=== PATIENT | female | born 1955 | race Caucasian/White ===

== ENCOUNTER 2018-10-12 13:01 | Emergency (ER) | payer MEDICARE, OTHER ==
[~2018-10-12] VITALS: Wt 78.0 kg
[2018-10-12 13:08] VITALS: BP 141/74; PULSE 97; RESP 18
[2018-10-12] MEDS ORDERED: IBUPROFEN 800 MG TAB PO ONE (14:00)
[2018-10-12] MEDS ORDERED: IBUP-1542 PO (15:12)
--- NOTE | 2018-10-12 15:14 | ERD ---
ER Documentation Chief Complaint Chief Complaint BACK /NECK PAIN X 2DAYS HPI 63 year old female presents complaining of neck pain and weakness x 4 days. She reports that her pain starts at her neck and radiates to her shoulders bila terally. She denies numbness/tingling of her arms/fingers. She denies any recent injuries or falls. She describes the pain as achy in character and rates it as 7/10 intensity. She states the pain is constant and that nothing makes it better or worse. In addition, the patient reports feeling weak in the past few days. She states she has been diagnosed with a cardiac arrhythmia in which she was prescribed Amiodarone for. However, the patient states that she only takes it when she feels bad. She does not take it every day as directed. Other med hx: HTN, cardiac arrhythmia ROS All systems reviewed and are negative except as per history of present illness. Medications Home Meds Active Scripts Ibuprofen* (Motrin*) 600 Mg Tab, 600 MG PO Q6H PRN for PAIN AND OR ELEVATED TEMP, #30 TAB Prov:MITA LITTLEJOHN PA-C 10/12/18 Allergies Allergies: Coded Allergies: No Known Allergy (Unverified , 10/12/18) PMhx/Soc Medical and Surgical Hx: pt denies Medical Hx, pt denies Surgical Hx Hx Alcohol Use: No Hx Substance Use: No Hx Tobacco Use: No FmHx Family History: No diabetes Physical Exam Vitals Vital Signs Date Temp Pulse Resp B/P (MAP) Pulse Ox O2 O2 Flow FiO2 Time Delivery Rate 10/12/18 98.1 97 18 141/74 99 13:08 (96) Physical Exam Const: No acute distress Head: Atraumatic Eyes: Normal Conjunctiva, PERRLA ENT: Normal External Ears, Nose and Mouth. Neck: Full range of motion but with pain flexion/extension Resp: Clear to auscultation bilaterally Cardio: Regular rate and rhythm Abd: Soft, non tender, non distended. Skin: No petechiae or rashes Back: Tenderness to C spine midline, Pain with ROM flexion/extension Ext: No cyanosis, or edema Neur: Awake and alert Psych: Normal Mood and Affect Result Diagram: 10/12/18 1415 10/12/18 1415 Results 24 hrs Laboratory Tests Test 10/12/18 14:15 White Blood Count 7.0 10^3/ul Red Blood Count 6.07 10^6/ul Hemoglobin 12.3 g/dl Hematocrit 38.9 % Mean Corpuscular Volume 64.1 fl Mean Corpuscular Hemoglobin 20.3 pg Mean Corpuscular Hemoglobin Concent 31.6 g/dl Red Cell Distribution Width 18.6 % Platelet Count 182 10^3/UL Mean Platelet Volume fl Immature Granulocytes % 0.100 % Neutrophils % 47.9 % Lymphocytes % 44.2 % Monocytes % 6.5 % Eosinophils % 0.7 % Basophils % 0.6 % Nucleated Red Blood Cells % 0.3 /100WBC Immature Granulocytes # 0.010 10^3/ul Neutrophils # 3.3 10^3/ul Lymphocytes # 3.1 10^3/ul Monocytes # 0.5 10^3/ul Eosinophils # 0.1 10^3/ul Basophils # 0.0 10^3/ul Nucleated Red Blood Cells # 0.0 10^3/ul Urine Color STRAW Urine Clarity CLEAR Urine pH 7.0 Urine Specific [place] 1.005 Urine Ketones NEGATIVE mg/dL Urine Nitrite NEGATIVE mg/dL Urine Bilirubin NEGATIVE mg/dL Urine Urobilinogen NEGATIVE mg/dL Urine Leukocyte Esterase NEGATIVE Earl/ul Urine Hemoglobin NEGATIVE mg/dL Urine Glucose NEGATIVE mg/dL Urine Total Protein NEGATIVE mg/dl Sodium Level 141 mmol/L Potassium Level 3.6 mmol/L Chloride Level 96 mmol/L Carbon Dioxide Level 33 mmol/L Anion Gap 12 Blood Urea Nitrogen 11 mg/dl Creatinine 0.56 mg/dl Est Glomerular Filtrat Rate mL/min > 60 mL/min Glucose Level 140 mg/dl Calcium Level 9.9 mg/dl Total Bilirubin 0.7 mg/dl Direct Bilirubin 0.00 mg/dl Indirect Bilirubin 0.7 mg/dl Aspartate Amino Transf (AST/SGOT) 40 IU/L Alanine Aminotransferase (ALT/SGPT) 62 IU/L Alkaline Phosphatase 71 IU/L Troponin I < 0.012 ng/ml B-Type Natriuretic Peptide 30 PG/ML Total Protein 8.0 g/dl Albumin 4.7 g/dl Globulin 3.30 g/dl Albumin/Globulin Ratio 1.42 Current Medications Medications Dose Sig/Min Start Time Status Last (Trade) Ordered Route PRN Stop Time Admin Dose Reason Admin Ibuprofen 800 mg ONCE ONCE 10/12/18 DC 10/12/18 (Motrin) PO 14:00 13:54 10/12/18 14:01 Procedures/MDM ED COURSE: The patient was stable throughout ED course. I kept the patient informed of laboratory and diagnostic imaging results throughout the ED course. EKG: Read by Dr. Chan, attending physician. EKG shows normal sinus rhythm at a rate of 75 bpm. T wave inversion seen in inferior leads - Repeat EKG was done 30 min later Read by Dr. Chan, attending physician. EKG shows normal sinus rhythm at a rate of 82 bpm. T wave inversion seen in inferior leads, no significant changes DIAGNOSTIC IMAGING: Read by radiologist. PROCEDURE: XR Lumbar Spine. CLINICAL INDICATION: neck pain TECHNIQUE: AP, lateral and cone-down lateral view of the lumbar spine were obtained. COMPARISON: No prior studies are available for comparison. FINDINGS: No acute fracture or vertebral body height loss. Normal lordosis without significant vertebral body subluxation. There is moderate disc disease at C5-C6 and C6-C7 with height loss and endplate osteophytic ridging. Moderate multilevel facet arthropathy throughout the cervical spine. No prevertebral soft tissue swelling. Diffuse osteopenia. IMPRESSION: No evidence of acute fracture of the cervical spine. Moderate multilevel spondylosis, as above. RPTAT:AAJJ Physician Cheng Date Time Electronically viewed and signed by Physician Cheng on 10/12/2018 15:03 PROCEDURES: none MEDICATIONS GIVEN: Motrin Patient tolerated medication well with no adverse reactions. Patient reported improvement in pain. MEDICAL DECISION MAKING: Patient is a 63 year old female presenting to the ED for neck pain and weakness x 4 days. During Physical exam, the patient appeared fine and in No acute distress. She denies any CP or SOB. She reported pain that started from her neck and radiated to her shoulders bilat. She showed good ROM of her UE and slight pain with ROM of her neck. Xray imaging was done showing no evidence of acute fracture of the cervical spine and moderate multilevel spondylosis. Due to the patients age, cardiac arrhythmia, and stated weakness, an initial EKG was perfo rmed showing signs of T wave inversion in the inferior leads. Blood work and urinalysis was performed to rule out any cardiac events. Troponin was negative. Urinalysis was negative. A repeat EKG did not show much change. Patient was given a dose of Motrin during her ED stay which helped improve her pain. She did not experience any ASE or reaction to the medication. I have low suspicion for acute myocardial infarction, pneumothorax, cardiac tamponade, Upzbu-Bgpvewcyu-Dkgfm Syndrome, Brugada Syndrome, pulmonary embolism, AAA, aortic dissection, thoracic aortic dissection, endocarditis, myocarditis, pericarditis, or other emergent conditions. Her Vital signs were reviewed. Patient is afebrile. Patient was not hypoxic. Patient was hemodynamically stable. Patient was reassured and told to follow up with primary care for further care and management. PRESCRIPTION: Motrin DISCHARGE: At this time, patient is stable for discharge and outpatient management. I have instructed the patient to follow-up with his/her primary care physician in 1-2 days. I have discussed with the patient the possibility of needing to see a specialist for further workup and imaging studies if symptoms persist. I have instructed the patient to promptly return to the ER for any new or worsening symptoms including increased pain, fever, nausea, vomiting, weakness or LOC. The patient and family expressed understanding of and agreement with this plan. All questions were answered. Home care instructions were provided. Disclaimer: Inadvertent spelling and grammatical errors are likely due to EHR/dictation software use and do not reflect on the overall quality of patient care. Also, please note that the electronic time recorded on this note does not necessarily reflect the actual time of the patient encounter. ER attending note: Patient was seen independently along with the PA. Briefly, this is a 63-year-old female who presents with nonspecific right posterior shoulder discomfort which appears to be musculoskeletal in etiology associated with a generalized sense of weakness. Patient also states that she is taking amiodarone intermittently for a sense of palpitations. Clinical examination shows no findings of cardiac, neurologic or other concerns. She is ambulatory without difficulty and well-appearing. Diagnostic evaluation demonstrates evidence of a nonspecific but abnormal EKG, with no evidence of arrhythmia and questionable inferior ischemic changes, but with a negative troponin as well as otherwise normal blood tests and imaging studies. Patient feels much better after administration of ibuprofen for what appears to be a musculoskeletal cause of the shoulder pain. Assessment: After diagnostic tests were reviewed it appears that this is muscular skeletal in etiology. Plan: Patient will take ibuprofen for pain control. She will follow-up with her doctor. She has been reeducated on the amiodarone. Departure Diagnosis: Primary Impression: Neck pain Condition: Fair Patient Instructions: Neck Pain, No Trauma Referrals: [facility] YOU HAVE RECEIVED A MEDICAL SCREENING EXAM AND THE RESULTS INDICATE THAT YOU DO NOT HAVE A CONDITION THAT REQUIRES URGENT TREATMENT IN THE EMERGENCY DEPARTMENT. FURTHER EVALUATION AND TREATMENT OF YOUR CONDITION CAN WAIT UNTIL YOU ARE SEEN IN YOUR DOCTORS OFFICE WITHIN THE NEXT 1-2 DAYS. IT IS YOUR RESPONSIBILITY TO MAKE AN APPOINTMENT FOR FOLOW-UP CARE. IF YOU HAVE A PRIMARY DOCTOR --you should call your primary doctor and schedule an appointment IF YOU DO NOT HAVE A PRIMARY DOCTOR YOU CAN CALL OUR PHYSICIAN REFERRAL HOTLINE AT IF YOU CAN NOT AFFORD TO SEE A PHYSICIAN YOU CAN CHOSE FROM THE FOLLOWING [facility] [address] [facility] [address] [facility] [facility] [address] [facility] [address] [facility] [address] [facility] [facility]. [address] [facility] [facility] YOU HAVE RECEIVED A MEDICAL SCREENING EXAM AND THE RESULTS INDICATE THAT YOU DO NOT HAVE A CONDITION THAT REQUIRES URGENT TREATMENT IN THE EMERGENCY DEPARTMENT. FURTHER EVALUATION AND TREATMENT OF YOUR CONDITION CAN WAIT UNTIL YOU ARE SEEN IN YOUR DOCTORS OFFICE WITHIN THE NEXT 1-2 DAYS. IT IS YOUR RESPONSIBILITY TO MAKE AN APPOINTMENT FOR FOLOW-UP CARE. IF YOU HAVE A PRIMARY DOCTOR --you should call your primary doctor and schedule and appointment IF YOU DO NOT HAVE A PRIMARY DOCTOR YOU CAN CALL OUR PHYSICIAN REFERRAL HOTLINE AT . IF YOU CAN NOT AFFORD TO SEE A PHYSICIAN YOU CAN CHOSE FROM THE FOLLOWING [facility] INSTITUTIONS: [facility] [address] [place] [address] [facility] [address] [place] [address] [facility] [place] [address] [place] [address] Additional Instructions: Follow-up with your primary care provider for further care and management of your neck pain. Continue using amiodarone daily for your arrhythmia and follow-up with your primary care provider for management of your heart health in the next 1 to 2 days. Call your primary care doctor TOMORROW for an appointment during the next 1-2 days.See the doctor sooner or return here if your condition worsens before your appointment time. MITA LITTLEJOHN PA-C Oct 12, 2018 15:14 MARCELLE ESTEVES Oct 12, 2018 15:17
== END 2018-10-12 15:40 | disposition home or self-care (01) ==
LOC: FTE 13:01
DX: M54.2 Cervicalgia (principal); M54.9 Dorsalgia, unspecified; R53.1 Weakness; I10 Essential (primary) hypertension
CPT/HCPCS: 36415; 72040; 80053; 81003; 83880; 84484; 85025; 93005